=== PATIENT | female | born 1965 ===

== ENCOUNTER 2023-12-07 05:49 | Day surgery (SDC) | payer OTHER ==
[~2023-12-07] VITALS: Ht 160 cm; Wt 63.5 kg
[2023-12-07] MEDS ORDERED: BUPIVACAINE HCL 30 ML VIAL IJ SCH (10:00)
[2023-12-07] MEDS ORDERED: CEFAZOLIN SODIUM 1,000 MG VIAL IV SCH (10:00)
[2023-12-07] MEDS ORDERED: ENOXAPARIN SODIUM 40 MG/0.4 ML SYRINGE SUBCUTANEO SCH (10:00)
[2023-12-07] MEDS ORDERED: EPINEphrine 10 ML DISP.SYRIN IJ SCH (10:00)
[2023-12-07] MEDS ORDERED: LIDOCAINE HCL 1%/EPINEPHRINE 20ML VIAL IJ SCH (10:00)
== END 2023-12-07 17:00 | disposition home or self-care (01) ==
LOC: CIR.AMB 05:49
PROVIDERS: ATTEND Specialist
DX: N62 Hypertrophy of breast (principal); N60.01 Solitary cyst of right breast; Z98.82 Breast implant status